=== PATIENT | female | born 1965 | race Caucasian/White ===

== ENCOUNTER 2017-07-25 17:01 | Emergency (ER) | payer SELFPAY ==
[~2017-07-25] VITALS: Ht 172.7 cm; Wt 85.0 kg
[2017-07-25 17:15] VITALS: Ht 172.7 cm; Wt 85.0 kg
== END 2017-07-25 19:03 | disposition left against medical advice (07) ==
LOC: FTE 17:01
DX: Z53.21 Procedure and treatment not carried out due to patient leaving prior to being seen by health care provider (principal)

== ENCOUNTER 2017-08-12 09:28 | Emergency (ER) | payer OTHER ==
[~2017-08-12] VITALS: Ht 167.6 cm; Wt 94.3 kg
[2017-08-12 09:30] VITALS: Ht 167.6 cm; Wt 94.3 kg
[2017-08-12] MEDS ORDERED: KETOROLAC 60 MG INJ IM STA (11:37)
[2017-08-12] MEDS ORDERED: PROCHLORPERAZINE 10 MG TAB PO ONE (12:00)
[2017-08-12] MEDS ORDERED: DIPHENHYDRAMINE 50 MG INJ IM ONE (12:00)
[2017-08-12] MEDS ORDERED: ASPI1TAB31 PO (12:35)
[2017-08-12] MEDS ORDERED: PROC10TA10 PO (12:35)
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
[2017-08-14] MEDS ORDERED: CYCL-319 PO (08:18)
[2017-08-14] MEDS ORDERED: OMEP40CA6 PO (08:18)
[2017-08-14] MEDS ORDERED: HYDR-902 PO (08:19)
[2017-08-14] MEDS ORDERED: IBUP800T25 PO (08:19)
== END 2017-08-12 12:56 | disposition home or self-care (01) ==
LOC: FTE 09:28
DX: G43.109 Migraine with aura, not intractable, without status migrainosus (principal); Z79.82 Long term (current) use of aspirin
CPT/HCPCS: 96372; J1200; J1885; Z7502; Z7610

== ENCOUNTER 2017-08-14 07:04 | Inpatient (IN) | END 2017-08-21 12:20 | disposition home or self-care (01) | DRG 871 ==

== ENCOUNTER 2017-12-21 10:53 | Emergency (ER) | END 2017-12-21 16:07 | disposition home or self-care (01) ==

== ENCOUNTER 2018-02-21 16:34 | Emergency (ER) | END 2018-02-21 20:05 | disposition home or self-care (01) ==

== ENCOUNTER 2018-03-17 18:50 | Emergency (ER) | END 2018-03-17 22:46 | disposition home or self-care (01) ==

== ENCOUNTER 2018-04-11 22:22 | Emergency (ER) | END 2018-04-12 00:37 | disposition home or self-care (01) ==

== ENCOUNTER 2018-04-12 10:42 | Emergency (ER) | END 2018-04-12 12:04 | disposition home or self-care (01) ==

== ENCOUNTER 2018-04-15 08:42 | Emergency (ER) | END 2018-04-15 10:47 | disposition home or self-care (01) ==

== ENCOUNTER 2018-04-21 17:50 | Emergency (ER) | END 2018-04-21 19:54 | disposition home or self-care (01) ==

== ENCOUNTER 2018-05-14 09:35 | Emergency (ER) | END 2018-05-14 10:51 | disposition home or self-care (01) ==

== ENCOUNTER 2018-05-25 10:06 | Emergency (ER) | END 2018-05-25 12:29 | disposition home or self-care (01) ==

== ENCOUNTER 2018-06-04 21:46 | Emergency (ER) | END 2018-06-05 00:06 | disposition home or self-care (01) ==

== ENCOUNTER 2018-06-20 10:37 | Emergency (ER) | END 2018-06-20 12:23 | disposition home or self-care (01) ==

== ENCOUNTER 2019-01-10 17:43 | Emergency (ER) | payer OTHER ==
[~2019-01-10] VITALS: Ht 172.7 cm; Wt 114.0 kg
[~2019-01-10 17:43] MED LIST: ACET325T33 PO; BEN50 PO; CYCL10TA7 PO; DIPH25CA6 PO; FEXO180T61 PO; FIORICET PO; HC30CR25 TOP; HYDR-3980 PO; HYDR-4011 PO; IBUP-1542 PO; IBUP800T48 PO; NAPR-985 PO; OMEP40CA6 PO; ONDA4TAB14 PO; ONDA4TAB8 PO; OXYC-279 PO; PRED20TA PO
[2019-01-10 17:44] VITALS: BP 176/122; PULSE 96; RESP 22; Ht 172.7 cm; Wt 114.0 kg
[2019-01-10] MEDS ORDERED: ONDANSETRON (ODT) 4 MG TAB ODT STA (17:56)
[2019-01-10] MEDS ORDERED: LIDOCAINE/MYLANTA 40 ML BTL PO ONE (18:00)
[2019-01-10] MEDS ORDERED: KETOROLAC 30 MG INJ IM STA (18:24)
[2019-01-10] MEDS ORDERED: PANT40TA3 PO (18:28)
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
[2019-01-10] MEDS ORDERED: PANTOPRAZOLE (EC) 40 MG TAB PO ONE (19:00)
--- NOTE | 2019-01-11 14:26 | RADRPT ---
Vent Rate: 90 bpm RR Interval: 0 msec GA Interval: 156 msec QRS Duration: 78 msec QT Interval: 382 msec QTC Interval: 467 msec P-R-T [place]: 63 - 3 - 55 degrees Normal sinus rhythm Normal ECG Electronically Signed By: [facility]
== END 2019-01-10 18:50 | disposition home or self-care (01) ==
LOC: E/R 17:43
DX: R11.2 Nausea with vomiting, unspecified (principal); J45.909 Unspecified asthma, uncomplicated; R10.13 Epigastric pain; Z91.040 Latex allergy status
CPT/HCPCS: 93005; J1885; Z7502; Z7610